=== PATIENT | female | born 1995 | race American Indian/Alaskan Native ===

== ENCOUNTER 2018-03-21 19:29 | Emergency (ER) | payer OTHER ==
[2018-03-21 20:07] VITALS: BMI 41.0
[2018-03-22 09:57] VITALS: BP 121/54; PULSE 106; RESP 18; TEMP 98.5; O2SAT 98
== END 2018-03-21 21:18 | disposition home or self-care (01) ==
LOC: H.EROB2 19:29
DX: O34.63 Maternal care for abnormality of vagina, third trimester (principal); N89.8 Other specified noninflammatory disorders of vagina; O26.93 Pregnancy related conditions, unspecified, third trimester; R10.2 Pelvic and perineal pain; O99.213 Obesity complicating pregnancy, third trimester; O47.1 False labor at or after 37 completed weeks of gestation; Z3A.38 38 weeks gestation of pregnancy

== ENCOUNTER 2018-04-02 00:17 | Emergency (ER) | payer OTHER ==
[2018-04-02 00:32] VITALS: BMI 40.6
--- NOTE | 2018-04-02 01:19 | OBHP ---
Datetime: 04/02/2018 01:14 IP Adm Impression: Term, intrauterine IP Admit Plan: Observation/Evaluation; Discharge home Admit Comment, IP Provider: Patient is a @ 40.6 wks with irregular contractions for rule out la bor. Patient denies vb, leaking, +FM, no antepartum issues, no medical problems, no antepartum compli cations, no surgerical history. VE=1/thick/high, FHR = 125 car-I, irregular contractions. Patient is not in labor, discharged patient home, patient to follow up for induction on 04/03. all questions ans wered Pelvic Type - PN: Adequate Extremities - PN: Normal Abdomen - PN: Normal Back - PN: Normal Breast - PN: Normal Lungs - PN: Normal Heart - PN: Normal Thyroid - PN: Normal Neurologic - PN: Normal HEENT - PN: Normal General - PN: Normal FHR - Baseline A Provider: 125 Contraction Comments Provider: Irregular EGA AdmitDate IP: 40.6 Vital Signs Provider: Reviewed; Within Normal Limits IP Chief Complaint: Uterine contractions NICHD Variability Prov Fetus A: Moderate 6-25bpm NICHD Accel Fetus A IP Provider: [id number] NICHD Decel Fetus A IP Provider: None Dilatation, Provider: 1 Effacement, Provider: thick Station, Provider: -3 Genitourinary Exam: Normal DTRs - PN: Normal Datetime: 03/21/2018 20:20 Gestation - Est Wks by US: 38.6 IP Hx Assessment: The History has been Reviewed and is Current
--- NOTE | 2018-04-02 01:19 | OBDCSUM ---
Datetime: 04/02/2018 01:10 Discharged to, Provider: Home Follow up at, Provider: Labor and Delivery Unit Disch Instr Activity: Normal activity Disch Instr Diet: Regular Discharge Diagnosis, Provider: False Labor - Undelivered Discharge Time: 04/02/2018 01:10 Follow up in weeks, Provider: Scheduled Induction 04/03/2018 Disch Referrals: None
== END 2018-04-02 01:15 | disposition home or self-care (01) ==
LOC: H.EROB2 00:17
DX: O47.1 False labor at or after 37 completed weeks of gestation (principal); O26.93 Pregnancy related conditions, unspecified, third trimester; R10.2 Pelvic and perineal pain; O48.0 Post-term pregnancy; Z3A.40 40 weeks gestation of pregnancy

== ENCOUNTER 2018-04-02 06:04 | Inpatient (IN) | payer OTHER ==
[2018-04-02 00:32] VITALS: BMI 40.6
[2018-04-02] MEDS: Lactated Ringer's 1,000 ML IV ONE ×2 (07:30→11:05)
[2018-04-02] MEDS ORDERED: Lactated Ringer's 1,000 ML IV ONE (07:54)
[2018-04-02] MEDS ORDERED: Oxytocin 30 UNIT 30 UNITS/500 ML BAG IV ONE ×2 (07:56→09:25)
[2018-04-02] MEDS ORDERED: OXYTOCIN/0.9 % NS 20 UNIT/1,000 ML BAG IV ONE (07:57)
[2018-04-02] MEDS ORDERED: Fentanyl/Bupivacaine HCl 250 ML EPI ONE (08:30)
[2018-04-02 08:35] LABS: BASO % 0.3 % (0.0-2.0); EOS % 0.2 % (0.0-4.0); HEMOGLOBIN 10.9 g/dL (12.0-16.0); LYMPH # 1.4 K/uL (1.0-4.3); LYMPH % 12.4 % (20.0-40.0); MEAN CELL VOLUME 83.6 fl (81.0-99.0); MEAN CORPUSCULAR HEMOGLOBIN 25.7 pg (27.0-31.0); MEAN CORPUSCULAR HGB CONC 30.7 g/dL (33.0-37.0); MONO # 0.6 K/uL (0.0-0.8); MONO % 5.5 % (0.0-10.0); NEUT # 9.5 K/uL (1.8-7.0); NEUT % 81.6 % (50.0-75.0); NRBC % 0.1 % (0.0-0.0); RBC 4.26 Mil/uL (3.80-5.20); RED CELL DISTRIBUTION WIDTH 14.9 % (11.5-14.5); WHITE BLOOD COUNT 11.6 K/uL (4.8-10.8)
[2018-04-02] MEDS ORDERED: Lidocaine 1% Inj (20ml) ONE (11:54)
--- NOTE | 2018-04-02 11:58 | OBPN ---
Datetime: 04/02/2018 11:53 IP Progress Impression: Normal progression of labor IP Procedures: Artificial ROM; Sterile Vag Exam IP Progress Plan: Continue present management Membranes, Provider: Bulging Amniotic Fluid Color, Provider: Clear FHR - Baseline A Provider: 130's IP Progress Note Comment: 22 yo G1 at 40+4 wks in labor Continue pitocin FHT reassuring Vital Signs Provider: Reviewed NICHD Variability Prov Fetus A: Moderate 6-25bpm Dilatation, Provider: 8-9 Effacement, Provider: 100 Station, Provider: 0 NICHD Decel Fetus A IP Provider: None Datetime: 04/02/2018 08:19 Pool Provider: Negative Gestation - Est Wks by US: 40.4 NICHD Accel Fetus A IP Provider: 15X15 FHR Category Provider Fetus A: Category I Datetime: 04/02/2018 01:14 Contraction Comments Provider: Irregular
[2018-04-02] MEDS ORDERED: Benzocaine/Menthol SPRAY TOP PRN (15:48)
[2018-04-02] MEDS ORDERED: Oxycodone/Acetaminophen 5/325 mg Tab PO PRN (15:48)
--- NOTE | 2018-04-02 16:04 | OBDS ---
MATERNAL INFORMATION Provider Comments: Pt progressed to complete and pushed to deliver a viable male in TENINO posit ion through clear fluid with terminal meconium @ 1536. 9/9, 4175g, 9#3. Cord doubly clamped and FOB cut the cord. Cord blood collected. Placenta delivered spontaneously intact with 3-vessel cord @ 1541. Perineum and vagina inspected and found to be intact. Patient and baby tolerated procedure we ll, no complications, EBL- 150ml. Haley White I was present for the delivery-(ES) LABOR SUMMARY EDC: 03/29/2018 00:00 No. Babies in Womb: 1 LABOR INFORMATION Onset of Labor: 04/02/2018 04:00 Group B Beta Strep: Negative MEMBRANES Membranes Rupture Method: Artificial Rupture of Membranes: 04/02/2018 11:45 Amniotic Fluid Color: Clear Amniotic Fluid Amount: Small Amniotic Fluid Odor: Normal VAGINAL DELIVERY Episiotomy: None Laceration Extension: N/A Laceration Type: None Laceration Repair: Not Applicable PRESENTATION/POSITION BABY A Presentation: Cephalic
[2018-04-02] MEDS: cefOXitin 2 GM in Sodium Chloride 0.9% 100 ML IVPB SCH ×2 (17:15→23:08)
[2018-04-02] MEDS ORDERED: cefOXitin 2 GM in Sodium Chloride 0.9% 100 ML IVPB SCH (22:00)
[2018-04-03] MEDS: cefOXitin 2 GM in Sodium Chloride 0.9% 100 ML IVPB SCH ×3 (04:46→16:35)
[2018-04-03 06:14] LABS: BASO % 0.3 % (0.0-2.0); EOS # 0.1 K/uL (0.0-0.7); EOS % 0.8 % (0.0-4.0); HEMOGLOBIN 8.4 g/dL (12.0-16.0); LYMPH # 2.6 K/uL (1.0-4.3); LYMPH % 17.8 % (20.0-40.0); MEAN CELL VOLUME 83.3 fl (81.0-99.0); MEAN CORPUSCULAR HGB CONC 31.2 g/dL (33.0-37.0); MEAN PLATELET VOLUME 9.8 fl (7.2-11.7); MONO % 6.6 % (0.0-10.0); NEUT # 10.8 K/uL (1.8-7.0); NEUT % 74.5 % (50.0-75.0); RBC 3.24 Mil/uL (3.80-5.20); RED CELL DISTRIBUTION WIDTH 14.6 % (11.5-14.5); WHITE BLOOD COUNT 14.5 K/uL (4.8-10.8)
--- NOTE | 2018-04-03 09:35 | OBPPN ---
Datetime: 04/03/2018 07:20 PP Pain Prov: Within normal limits PP Nausea Prov: Denies PP Flatus Prov: Yes PP BM Prov: No PP Breasts Prov: Not Done PP Heart Prov: Normal PP Lungs Prov: Normal PP Abdomen/Uterus Prov: Normal PP Lochia Prov: Normal PP Vulva/Perineum Prov: Not Done PP CVA Tenderness Prov: Not Done PP Extremities Prov: Normal PP C/S Incision Prov: Not Applicable PP Progress Prov: Normal PP Impression Prov: Normal progression PP Plan Prov: Continue present management PP Progress Note Prov: PPD1 S: 22yo . Seen and examined at bedside. After delivery pt had fevers she was 102.1 F but overn ight it went down to 99.7 and she has been afebrile, T @ 4am 98.1 after being treated with cefoxitin . Pt reports mild buttock pain controlled with pain meds. Ambulating well without dizziness. Breast a nd Bottle feeding without difficulty. Tolerating PO diet well. Lochia is similar to menses volume. Vo iding freely with no blood noted, No Bowel movement yet, but is passing gas per rectum. Denies fever/ chills, diarrhea/constipation, nausea/vomiting, CP/SOB, dizziness, calf pain. Desires circumcision for O: T 98.1 @ 4am PHYSICAL EXAM: GEN: Resting comfortably in bed, NAD LUNGS: CTA B/L, no wheezing, rhonchi, or rales CVS: RRR, S1, S2, no m/r/g ABD: ND, +BS, firm fundus @ umbilical level. Soft, appropriate TTP EXT: No edema, calves nontender A/P: 22yo s/p on 04/02/18 @ 15:36 Pt doing well on PPD1 Post fever of 102.1, over night 99.7, this AM afebrile 98.1 Cefoxitin 2gm in NS IVPB Q6h Tolerating regular diet OOB with caution Continue vitamin Ibuprofen 600 mg 1 tab q/ 6 hrs po if mild pain. Encourage Anticipate discharge to home on 04/04/18 F/U in 4-6 weeks post- with [facility]- emailed lianne Case reviewed and discussed with Attending Deyanira Vail M.D. PGY-1 OB Hopsitalist on-call: This morning I saw this patinet. Agree with note. CHEN DUBON PP Procedures: None Vital Signs Provider PP: Reviewed; Within Normal Limits
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
[2018-04-04 06:31] LABS: BASO % 0.4 % (0.0-2.0); EOS # 0.1 K/uL (0.0-0.7); EOS % 0.8 % (0.0-4.0); HEMOGLOBIN 8.9 g/dL (12.0-16.0); LYMPH % 17.2 % (20.0-40.0); MEAN CELL VOLUME 81.7 fl (81.0-99.0); MEAN CORPUSCULAR HEMOGLOBIN 25.9 pg (27.0-31.0); MEAN CORPUSCULAR HGB CONC 31.8 g/dL (33.0-37.0); MEAN PLATELET VOLUME 10.1 fl (7.2-11.7); MONO # 0.7 K/uL (0.0-0.8); MONO % 6.2 % (0.0-10.0); NEUT # 8.5 K/uL (1.8-7.0); NEUT % 75.4 % (50.0-75.0); RBC 3.44 Mil/uL (3.80-5.20); RED CELL DISTRIBUTION WIDTH 14.8 % (11.5-14.5); WHITE BLOOD COUNT 11.3 K/uL (4.8-10.8)
--- NOTE | 2018-04-04 08:58 | OBPPN ---
Datetime: 04/04/2018 06:24 PP Pain Prov: Within normal limits PP Nausea Prov: Denies PP Flatus Prov: Yes PP BM Prov: Yes PP Breasts Prov: Not Done PP Heart Prov: Normal PP Lungs Prov: Normal PP Abdomen/Uterus Prov: Normal PP Lochia Prov: Normal PP Vulva/Perineum Prov: Not Done PP CVA Tenderness Prov: Not Done PP Extremities Prov: Normal PP C/S Incision Prov: Not Applicable PP Progress Prov: Normal PP Impression Prov: Normal progression PP Plan Prov: Continue present management; Discharge PP Progress Note Prov: PPD2 S: 22yo . Seen and examined at bedside. No events overnight pt has remained afebrile overnight after being treated with cefoxitin for post- fever. Pt reports mild pain controlled with pain meds. Ambulating well without dizziness. Breast and Bottle feeding without difficulty. Tolerating PO diet well. Lochia is similar to menses. Voiding freely with no blood noted, has had a bowel movement and is passing gas per rectum. Denies fever/chills, diarrhea/constipation, nausea/vomiting, CP/SOB, d izziness, calf pain. was circumcised O: T 98.3 @4am PHYSICAL EXAM: GEN: Resting comfortably in chair, NAD LUNGS: CTA B/L, no wheezing, rhonchi, or rales CVS: RRR, S1, S2, no m/r/g ABD: ND, +BS, firm fundus @ umbilical level. Soft, appropriate TTP EXT: No edema, calves non tender A/P: 22yo s/p on 04/02/18 @ 15:36 Pt doing well on PPD2 Afebrile after Cefoxitin 2gm in NS IVPB Q6h Tolerating regular diet Ambulating well Continue vitamin Ibuprofen 600 mg 1 tab q/ 6 hrs po if mild pain. Encourage Anticipate discharge to home today 04/04/18 F/U in 4-6 weeks post- with [facility] Apr 30, has appt for 1 week at [facility] Case reviewed and discussed with Attending Deyanira Vail M.D. PGY-1 Attending addendum: I saw and examined the patient at bedside myself this morning. I reviewed the resident note above and agree with findings and mangement. Patient doesn't want to breastfeed. Encouraged. DC home today, f/u 4-6 wks w/ Dr. Hugo at [facility]. Irina Daigle MD IP PP Procedures: None Vital Signs Provider PP: Reviewed; Within Normal Limits
--- NOTE | 2018-04-04 09:00 | OBDCSUM ---
Datetime: 04/04/2018 06:25 Discharged to, Provider: Home Follow up at, Provider: [facility] Apr 30 Disch Instr Activity: Normal activity Disch Instr Diet: Regular Discharge Instructions, Provider: Routine instructions given Discharge Diagnosis, Provider: Term Delivered Discharge Time: 04/04/2018 06:25 Follow up in weeks, Provider: 4-6 weeks Contraception discussed, Prov: Yes Disch Activity Restrictions: No exercising; No lifting; Minimize stair-climbing; No sexual activity; Nothing in vagina - [place], tampons, douche Discharge Comment, Provider: 22 yo s/p on 04/02/2018. EGA: 40.4 weeks Diagnosis: delivered no complications Summary of : Hx of Chlamydia, with a RANCHO on 03/28 L_D summary: , no lacerations DOD: 04/02 @ 15:36 Sex: Male Weight: 4175 gm : 99 Feeding: breast and bottle summary: Pt had fever of 102.1F post- treated with cefoxitin 2gm and blood cx negative @24hrs pt royce ins afebrile, Lochia is similar volume to menses. CBC : 8.4/27 (admission 10.9/35.6) Blood type: O+ DISCHARGE DATA D/C DATE: 04/04/2018 DISCHARGE INSTRUCTIONS: -Encouraged -PNV 1 tab po q/day -Ibuprofen 600 mg 1 tab po q4-6h PRN mild pain #30 -Ambulate with caution, nothing per vagina/sex for 4 weeks, no heavy lifting, avoid stairs, if exc essive bleeding or fever without relief from Tylenol go to ED F/U at [facility] for 4-6 week check Apr 30. [facility] 1 week- [facility] Attending addendum: I saw and examined the patient at bedside myself this morning. I reviewed the resident note above and agree with findings and mangement. Patient doesn't want to breastfeed. Encouraged. DC home today, f/u 4-6 wks w/ Dr. Hugo at [facility]. Irina Daigle MD Contraception after Delivery: Control Pill/Patch; IUD
[2018-04-04 18:27] VITALS: BP 110/57; PULSE 75; RESP 20; TEMP 97.9; O2SAT 98
== END 2018-04-04 12:48 | disposition home or self-care (01) | DRG 372 ==
LOC: H.EROB2 06:04 → H.L&D 07:54 → H.OB/GYN 18:10
PROVIDERS: ADMIT Obstetrics & Gynecology; ATTEND Obstetrics & Gynecology
PROC: 10E0XZZ Delivery of Products of Conception, External Approach (ICD-10-PCS; principal; 2018-04-02)
PROC: 4A1HXCZ Monitoring of Products of Conception, Cardiac Rate, External Approach (ICD-10-PCS; 2018-04-02)
DX: O77.0 Labor and delivery complicated by meconium in amniotic fluid (principal); O86.4 Pyrexia of unknown origin following delivery; Z37.0 Single live birth; Z3A.40 40 weeks gestation of pregnancy; Z83.3 Family history of diabetes mellitus